=== PATIENT | male | born 1955 | race Caucasian/White ===

== ENCOUNTER → 2017-11-18 | Outpatient (CLI) | payer OTHER ==
[~2017-11-18] MED LIST: ALL300 PO; ASPI-435 PO; ATOR-22 PO; CHOL1TAB42 PO; CITA20TA9 PO; LORA-741 PO; MULT-506 PO; POTA10CA28 PO
[2017-11-21 13:53] LABS: FECAL OCCULT BLOOD #1 NEGATIVE (NEGATIVE); FECAL OCCULT BLOOD #2 NEGATIVE (NEGATIVE); FECAL OCCULT BLOOD #3 NEGATIVE (NEGATIVE)
== END | disposition home or self-care (01) ==
LOC: C.LABSPEC 13:29
PROVIDERS: ATTEND Internal Medicine
DX: Z12.11 Encounter for screening for malignant neoplasm of colon (principal)

== ENCOUNTER 2022-03-13 07:10 | Inpatient (IN) ==
--- NOTE | 2022-03-13 09:15 | Procedure Note ---
Procedure Note Date of Service March 13, 2022 Note INDICATION: Recurrent right-sided pleural effusion PROCEDURE: Right thoracentesis DATE: 03/13/2022 TIME: 8:35 AM PROVIDER: Fernando Torres PA-C CONSENT: Was obtained prior to the procedure by Fernando Torres PA-C as directed by Dr. Plaza and placed on the chart PROCEDURE SUMMARY: Bedside ultra sound was performed to identify an appropriate puncture site. Images were saved to the [employer]it[employer] system. A time out was performed. The patient was prepped and draped in a sterile manner using chlorhexidine scrub after the appropriate level was confirmed by ultrasound. 1% lidocaine was used to numb the region. A finder needle was then used under negative pressure to locate fluid and instill lidocaine into the pleural space. A small incision was made with a #10 scalpel. A needle with overlying catheter was advanced using negative pressure on the syringe until a pleural flash was obtained. The thoracentesis catheter was then threaded without difficulty and without any bleeding. The patient had 50mL of serosanguineous fluid removed. The incision site was then covered with two Band- Aids with no evidence of bleeding. Samples were sent for cell count and differential, pH, cytology. No immediate complications were noted during the procedure. Dr. Plaza was contacted after the procedure with results. A post-procedure chest x-ray was completed and reviewed at bedside by this provider and no pneumothorax was identified. The patient tolerated the procedure well with no shortness of breath, no hypotension, no increase in heart rate, and no other acute symptoms. Coding
--- NOTE | 2022-03-13 09:34 | XRay Report ---
XR chest 1V portable CLINICAL HISTORY: post thoracentesis. Evaluate for pneumothorax. COMPARISON STUDY: 03/11/2023 TECHNIQUE: 1 view of the chest FINDINGS: Single frontal view of the chest demonstrates the heart to again be enlarged. The patient is status p ost interval right thoracentesis with decrease right pleural effusion present. However, there is sign ificant pleural effusion remaining present. There is no evidence for pneumothorax. Right basilar atel ectasis is again seen. There is no evidence for left pleural effusion. No confluent alveolar opacities are identified. There is no evidence for vascular congestion. There is no acute osseous pathology. IMPRESSION: 1. Interval right thoracentesis with no evidence for pneumothorax. 2. There is still right pleural effusion and right lower lobe atelectasis/collapse present. ACT 112: Negative or not required by law. Electronically signed by: Sourav Fuentes M.D. 03/13/2022 9:33 AM
[2022-03-13] MEDS ORDERED: OPTIRAY 320 125ml IV ONE (10:01)
--- NOTE | 2022-03-13 10:30 | CT Scan Report ---
CT angio chest wo/w con HISTORY: Hypoxia, loculated pleural effusion TECHNIQUE: Multiaxial CT images of the chest were performed both before and after the intravenous adm inistration of 120 cc of Optiray 320. Maximum intensity projection images were also obtained. COMPARISON STUDY: Chest CT 02/27/2022. PET CT 03/06/2022. FINDINGS: No evidence for an intramural hematoma within the thoracic aorta. There is mild calcified p laque within the thoracic aorta. The thoracic inlet is normal in course and caliber with no evidence for dissection. The main and lobar pulmonary arteries appear patent. The majority of the segmental/freeman bsegmental pulmonary arteries are suboptimally assessed due to the motion artifact and timing of cont rast but are also likely patent. The heart is normal in size. Increase in size in a 5.4 cm heterogene ous enhancing mass within the right hepatic lobe. Increase in size in a 5.1 cm left adrenal gland met astasis. Right hilar and subcarinal lymphadenopathy is again noted consistent with metastatic disease . A moderate partially loculated right pleural effusion is similar to the prior PET/CT. Multifocal ri ght-sided pleural metastatic disease is also similar to the prior PET/CT. Dominant pleural metastatic focus within the right lung base on image 278 measures 5 cm. The necrotic mass within the base of th e right lower lobe measures approximately 5.6 cm. Partial atelectasis seen within the right lower lob e due to the mass effect from the adjacent pleural effusion. Emphysema. No pneumothorax. Old, healed right posterior rib fractures. Left-sided nephrolithiasis again noted. Osseous metastatic foci are be tter appreciated on the prior PET/CT. IMPRESSION: 1. Interval increase in size within the right hepatic lobe and left adrenal gland metastases. 2. Loculated moderate malignant right pleural effusion and right pleural metastatic disease are not s ignificantly changed. 3. No significant change in the 5.6 cm necrotic mass within the right lower lobe. 4. Right hilar and subcarinal metastatic lymphadenopathy persists. 4. Emphysema. 5. No evidence for an aortic dissection or central pulmonary embolus. 6. Additional findings as described above. ACT 112: Negative or not required by law. Electronically signed by: Tyrone Keita M.D. 03/13/2022 10:28 AM
[2022-03-13 11:02] LABS: Appearance Pleural Fluid BLOODY; Basophils, Fluid 0 %; Color Pleural Fluid RED; Eosinophils, Fluid 10 %; Lymphocytes, Fluid 62 %; Mono,Macrophage,Mesothelial 8 %; Neutrophils, Fluid 20 %; RBC Pleural Fluid (A) 33000 /uL; Source Pleural Fluid RIGHT LUNG; WBC Pleural Fluid (A) 963 /uL
[2022-03-13 11:35] LABS: Basophils # (auto) 0.03 K/uL (0-0.2); Basophils % (auto) 0.2 %; Eosinophils # (auto) 2.71 K/uL (0-0.5); Eosinophils % (auto) 15.3 %; Hematocrit (blood only) 41.8 % (42-52); Hemoglobin 14.3 g/dL (14.0-18.0); Immature Granulocytes # (auto) 0.13 K/uL (0.00-0.02); Immature Granulocytes % (auto) 0.7 %; Lymphocytes # (auto) 2.03 K/uL (1.2-3.4); Lymphocytes % (auto) 11.5 %; Mean Corpuscular Hemoglobin 30.2 pg (25-34); Mean Corpuscular Volume 88.2 fL (80-100); Mean Platelet Volume 8.8 fL (7.4-10.4); Monocytes # (auto) 1.44 K/uL (0.11-0.59); Monocytes % (auto) 8.1 %; Neutrophils # (auto) 11.38 K/uL (1.4-6.5); Neutrophils % (auto) 64.2 %; Platelet Count 261 K/uL (130-400); RDW Coefficient of Variation 13.9 % (11.5-14.5); RDW Standard Deviation 45.2 fL (36.4-46.3); Red Blood Count 4.74 M/uL (4.7-6.1); White Blood Count 17.72 K/uL (4.8-10.8)
--- NOTE | 2022-03-13 11:36 | Pulmonary Consultation ---
Date of Consultation March 13, 2022 Assessment & Plan (1) Pulmonary mass: (2) Pleural effusion: (3) COPD with emphysema: Attending: Dr. Kong Is a 67-year-old male with a history of hyperlipidemia, gout, tobacco abuse history, metastatic lung cancer to the liver. He presented for outpatient thoracentesis. A thoracentesis was performed and found to have multiple loculations. Only 50 cc of serosanguineous fluid was able to be removed. Patient was sent for CTA which ruled out pulmonary embolus but did show complicated loculated pleural effusion on the right. Patient is being admitted for placement of 14 [place] pigtail catheter and initiation of MIST II protocol with tPA and dornase. Recommendations: 1. Loculated right-sided pleural effusion: * Patient will be admitted for full admission for placement of pigtail catheter and institution of tPA and dornase. * Previous thoracentesis performed 02/28/2022 revealed normal pH and no evidence of infection. Pleural fluid evacuated today shows a pH of 7.09. This may be a forming empyema versus low pH due to complicated loculation * Will check a procalcitonin and a CBC before initiating IV antibiotics * Admit to medical surgical floor for management 2. Adenocarcinoma of lung: * Patient currently does not have tissue biopsy of the lung but does have biopsy of the liver which showed metastatic lung cancer * Patient is scheduled to see radiation oncology this week. They will be consulted * Will also consult oncology as patient has not been seen by oncology for newly diagnosed cancer 3. COPD/emphysema: * [id number] smoking history. Patient quit at age 53 * Continue with Stiolto Respimat or equivalent * Maintain oxygen saturation between 88 and 92% * Will follow with [facility] pulmonary group pulmonology on discharge 4. Tobacco abuse history: * [id number] history. Patient quit smoking at age 53 * Continue to encourage complete abstention from tobacco products Thank you very much for including us in the care of this patient. We will continue to follow along with you during this hospital stay. Please refer to Dr. Kong's addendum for further recommendations. History of Present Illness Reason for Consultation: Complicated loculated pleural effusion Requesting Physician: Dr. Nava Attending Physician: Fernando Torres PA-C History of Present Illness Attending: Dr. Kong This is a 67-year-old male that has a diagnosis of metastatic lung cancer to the liver. He had a thoracentesis performed by Dr. Garrett and 970 cc of bloody fluid was evacuated. Over the last 2 weeks, patient has had increased shortness of breath. He presented to his primary care physician yesterday and was found to be profoundly hypoxic with an SaO2 into the 70s. Home oxygen was arranged and patient was placed on 3 to 4 L of supplemental oxygen via nasal cannula. The patient was then set up to come into the outpatient setting today for evaluation for thoracentesis. Patient was was seen in the procedure room the cardiac Optometric Assistant. An ultrasound was completed and showed loculated effusion on the right. A pocket was identified and a thoracentesis was successfully completed but only 50 cc of serosanguineous fluid was able to be evacuated. Due to the profound shortness of breath and hypoxia as well as a loculated effusion identified on ultrasound, patient was sent for CTA chest to rule out pulmonary emboli and evaluate the lung parenchyma and the effusions. CT scan was reviewed and shows multiple loculations that are complicated. Hounsfield units do not necessarily suggest a hemothorax. Options were discussed with the patient regarding a repeat thoracentesis to try to get fluid from another pocket to provide relief or placement of a chest tube to instill tPA and dornase (Pulmozyme) to try and break up the effusion and evacuated. At this time, patient elects to be admitted under the hospitalist service with pulmonary consult to have pigtail catheter placed and mist 2 protocol instituted. The patient has past medical history including gout, hyperlipidemia, depression, COPD, emphysema, tobacco abuse history (42-[id number] history, quit 14 years ago) He has new onset cancer with metastatic adenocarcinoma from the lung found in the liver. Pleural fluid from 02/28/2022 did not show any malignant cells. Liver biopsy from 03/04/2022 did show malignant cells consistent with metastatic lung cancer. Patient has not seen an oncologist today. He is scheduled to see Dr. Jose Aguayo this week. Patient has no shortness of breath with oxygen. However he does desaturate easily with ambulation and experiences shortness of breath with exertion. CTA of the chest did not reveal any pulmonary emboli. He has no hemoptysis. He has no pleuritic pain. He denies any fever, chills, sweats, rigors. He has no nausea or vomiting. He has no headache. He has no other acute complaints. Patient is vaccinated for COVID x2 with Pfizer Patient continues to work. 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 Patient desires to be a full code with full cardiopulmonary resuscitation. Allergies Allergy/AdvReac Type Severity Reaction Status Date / Time No Known Allergies Allergy Unknown ` Verified 03/13/22 07:37 Home Medications Medication Instructions Recorded Confirmed Type allopurinol 300 mg tablet 300 mg PO HS 01/04/19 03/13/22 History aspirin 81 mg tablet,delayed 81 mg PO HS 01/04/19 03/13/22 History release atorvastatin 20 mg tablet 20 mg PO HS 01/04/19 03/13/22 History citalopram 20 mg tablet 20 mg PO HS 01/04/19 03/13/22 History multivitamin 1 tab PO QAM 01/04/19 03/13/22 History potassium 99 mg tablet 99 mg PO QA 01/04/19 03/13/22 History tiotropium 2.5 mcg-olodaterol 2.5 2 inh INHALATION DAILY #4 g 02/28/22 03/13/22 Rx mcg/actuation mist for inhalation (Stiolto Respimat) Patient History Medical History (Updated 03/13/22 @ 11:22 by Fernando Torres PA-C) Cervical strain Concussion Gout High cholesterol History of tobacco abuse [id number] smoking history. Quit at age 53 Hyperlipidemia Pleural effusion Thoracentesis 02/28/2022. Repeat thoracentesis 03/13/2022 with loculation requiring admission for mist 2 protocol. Pulmonary mass Surgical History (Updated 03/13/22 @ 11:30 by Fernando Torres PA-C) History of thoracentesis Thoracentesis performed by Dr. Garrett at [facility] 02/28/2022 Repeat thoracentesis completed by Fernando Torres PA-C [facility] 03/13/2022 No significant past surgical history Previous back surgery Social History (Updated 03/13/22 @ 11:22 by Fernando Torres PA-C) Smoking Status: Former smoker Age Quit Using Tobacco: 53; Second Hand Exposure: No; Do You Dip or Chew Tobacco: No; Tobacco Cessation Education Requested by Patient: No Hx Alcohol Use: No Hx Substance Use: No Preferred Language: German Post Anesthesia Room Nurse Required: No Beliefs That Will Affect Care: None marital status: Current Living Situation: Spouse current occupational status: employed Feels Safe at Home: Yes Safety Concerns: Feels Safe At This Time Assistive Devices: None and Oxygen - Continuous Review of Systems Review of Systems: A total of 10 systems was reviewed and is negative other than as listed in the HPI Physical Exam Physical Exam: GENERAL : No acute distress EYES: No icterus, gaze conjugate NOSE: No evidence of epistaxis MOUTH: No lesions or candidiasis NECK: Supple LUNGS: Posterior wheezes in the bilateral mid lung burger. These clear with forceful cough. No rales or rhonchi. Decreased breath sounds on the right side. Diaphragmatic excursion of approximately 20 cm HEART: Regular, rate controlled ABDOMEN: Soft, NT, ND, BS Present EXTREMITIES: No LE edema, pedal pulses intact NEURO: A&OX3 Results & Data Results & Data ([facility]) Vital Signs (Past 12 Hours) Vital Signs Temp Pulse Resp BP Pulse Ox 03/13/22 10:38 36.6 C 81 18 147/75 H 95 03/13/22 10:08 36.5 C 80 16 146/76 H 97 03/13/22 09:43 36.5 C 80 16 144/78 H 93 03/13/22 09:28 36.5 C 81 16 145/86 H 93 03/13/22 09:13 36.5 C 81 16 139/85 93 03/13/22 08:58 36.4 C L 85 16 151/75 H 94 03/13/22 07:21 36.5 C 86 22 133/81 92 Critical Care Results & Data Vital Signs (Past 12 Hours) Vital Signs Temp Pulse Resp BP Pulse Ox 03/13/22 11:08 36.6 C 81 18 148/80 H 93 03/13/22 10:38 36.6 C 81 18 147/75 H 95 03/13/22 10:08 36.5 C 80 16 146/76 H 97 03/13/22 09:43 36.5 C 80 16 144/78 H 93 03/13/22 09:28 36.5 C 81 16 145/86 H 93 03/13/22 09:13 36.5 C 81 16 139/85 93 03/13/22 08:58 36.4 C L 85 16 151/75 H 94 03/13/22 07:21 36.5 C 86 22 133/81 92 Lab & Micro Results (Past 24 Hours) RBC Pending 03/13/22 WBC Pending 03/13/22 Hgb Pending 03/13/22 Hct Pending 03/13/22 MCV Pending 03/13/22 MCH Pending 03/13/22 MCHC Pending 03/13/22 Plt Count Pending 03/13/22 Na Pending 03/13/22 K Pending 03/13/22 Cl Pending 03/13/22 CO2 Pending 03/13/22 Anion Gap Pending 03/13/22 BUN Pending 03/13/22 Creatinine Pending 03/13/22 Estimated GFR ( Amer) Pending 03/13/22 Estimated GFR (Non-Af Amer) Pending 03/13/22 BUN/Creatinine Ratio Pending 03/13/22 Glu Pending 03/13/22 Ca Pending 03/13/22 Total Bilirubin Pending 03/13/22 AST Pending 03/13/22 ALT Pending 03/13/22 Alkaline Phosphatase Pending 03/13/22 TP Pending 03/13/22 Albumin Pending 03/13/22 Globulin Pending 03/13/22 Albumin/Globulin Ratio Pending 03/13/22 Mg Pending 03/13/22 11:00 03/13/22 Calcium Level Pending 03/13/22 11:00 03/13/22 Prothromb Time International Ratio Pending 03/13/22 11:00 03/13/22 Diagnostic Findings (Past 24 Hours) Chest X-Ray 03/13/22 08:59 XR chest 1V portable CLINICAL HISTORY: post thoracentesis. Evaluate for pneumothorax. COMPARISON STUDY: 03/11/2023 TECHNIQUE: 1 view of the chest FINDINGS: Single frontal view of the chest demonstrates the heart to again be enlarged. The patient is status post interval right thoracentesis with decrease right pleural effusion present. However, there is significant pleural effusion remaini ng present. There is no evidence for pneumothorax. Right basilar atelectasis is again seen. There is no evidence for left pleural effusion. No confluent alveolar opacities are identified. There is no evidence for vascular congestion. There is no acute osseous pathology. IMPRESSION: 1. Interval right thoracentesis with no evidence for pneumothorax. 2. There is still right pleural effusion and right lower lobe atelectasis/collapse present. ACT 112: Negative or not required by law. Electronically signed by: Sourav Fuentes M.D. 03/13/2022 9:33 AM Chest CTA 03/13/22 09:38 CT angio chest wo/w con HISTORY: Hypoxia, loculated pleural effusion TECHNIQUE: Multiaxial CT images of the chest were performed both before and after the intravenous administration of 120 cc of Optiray 320. Maximum intensity projection images were also obtained. COMPARISON STUDY: Chest CT 02/27/2022. PET CT 03/06/2022. FINDINGS: No evidence for an intramural hematoma within the thoracic aorta. There is mild calcified plaque within the thoracic aorta. The thoracic inlet is normal in course and caliber with no evidence for dissection. The main and lobar pulmonary arteries appear patent. The majority of the segmental/subsegmental pulmonary arteries are suboptimally assessed due to the motion artifact and timing of contrast but are also likely patent. The heart is normal in size. Increase in size in a 5.4 cm heterogeneous enhancing mass within the right hepatic lobe. Increase in size in a 5.1 cm left adrenal gland metastasis. Right hilar and subcarinal lymphadenopathy is again noted consistent with metastatic disease. A moderate partially loculated right pleural effusion is similar to the prior PET/CT. Multifocal right-sided pleural metastatic disease is also similar to the prior PET/CT. Dominant pleural metastatic focus within the right lung base on image 278 measures 5 cm. The necrotic mass within the base of the right lower lobe measures approximately 5.6 cm. Partial atelectasis seen within the right lower lobe due to the mass effect from the adjacent pleural effusion. Emphysema. No pneumothorax. Old, healed right posterior rib fractures. Left- sided nephrolithiasis again noted. Osseous metastatic foci are better appreciated on the prior PET/CT. IMPRESSION: 1. Interval increase in size within the right hepatic lobe and left adrenal gland metastases. 2. Loculated moderate malignant right pleural effusion and right pleural metastatic disease are not significantly changed. 3. No significant change in the 5.6 cm necrotic mass within the right lower lobe. 4. Right hilar and subcarinal metastatic lymphadenopathy persists. 4. Emphysema. 5. No evidence for an aortic dissection or central pulmonary embolus. 6. Additional findings as described above. ACT 112: Negative or not required by law. Electronically signed by: Tyrone Keita M.D. 03/13/2022 10:28 AM I & O Totals 24 Hours 03/12/22 03/13/22 03/14/22 06:59 06:59 06:59 Output Total 50 / 50 Balance -50 / -50 Cumulative 03/12/22 12:09 thru 03/13/22 10:01 Output Total 50 Balance -50 RT Ventilator Mngmt (Last Documented) Ventilator Ordered Settings Respiratory Rate 18 03/13/22 11:08 Ventilator - PT Measurements Respiratory Rate 18 PG Care Time/CCT Total # of Minutes Spent Total Time Spent with Patient: Total time spent is greater than 50% in coordination of care (as documented) at patient's floor/unit and/or counseling patient: 60 minutes independent of procedures Coding Level of Care Code 66254 Inpt Consult Level 5 Diagnoses Pulmonary mass R91.8 Pleural effusion J90 COPD with emphysema J43.9 Time Spent (min) 60
[2022-03-13 11:39] LABS: Mean Corpuscular Hgb Conc 34.2 g/dL (32-36)
[2022-03-13 11:50] LABS: INR 1.1 (0.9-1.1); Partial Thromboplastin Time 27.9 Seconds (21.0-31.0); Prothrombin Time 11.9 Seconds (9.0-12.0)
[2022-03-13 11:52] LABS: Albumin Level 3.3 gm/dl (3.4-5.0); BUN Creatinine Ratio 22.2 (10-20); Bilirubin,Total 0.6 mg/dl (0.2-1.0); Creatinine Clr Calc Pharmacy 116.6 ml/min; Est GFR (African American) 111.1 ml/min; Est GFR (Non-African American) 95.9 ml/min; Globulin 3.3 gm/dl (2.5-4.0); Magnesium 2.1 mg/dl (1.7-2.4); Potassium 4.4 mmol/L (3.5-5.1); Total Protein 6.6 gm/dl (6.0-8.3)
[2022-03-13 12:12] LABS: Influenza A virus by PCR Negative (Neg); Influenza B virus by PCR Negative (Neg); RSV by PCR Negative (Neg); SARS CoV2 RNA(COVID-19) InHosp NEGATIVE (Negative)
--- NOTE | 2022-03-13 13:16 | History & Physical Report ---
Date of Service March 13, 2022 Assessment & Plan (1) Pleural effusion: Plan: Right-sided, presumed malignant, already reaccumulating within 2 weeks of previous thoracentesis. With recent fevers need to exclude developing empyema. Underwent repeat thoracentesis today with only 50cc of bloody fluid obtained. Lack of yield likley due to numerous loculations. Appreciate pulmonary consultation & assistance. Plan is for pigtail catheter placement followed by MIST-2 protocol to help break up loculations, etc. Await gram/stain culture; low threshold to start IV antibiotic therapy. (2) Adenocarcinoma of right lung, stage 4: Plan: Recent diagnosis via liver biopsy performed at [facility]. Has yet to establish care with [facility] to initiate a treatment plan but again the diagnosis was just made in the last few days. While working on #1 strongly consider formal oncology consultation while here. Patient with c/o b/l calf "tiredness" / discomfort. Obtain b/l LE dopplers - r/o DVT. (3) COPD with emphysema: Plan: Now with NC O2 requirement likely due to #1. Bronchodilators prn. Cont NC O2. Cont usual home inhalers. (4) Gout: Plan: No flare at this time. Cont allopurinol for gout prophylaxis. (5) Hyponatremia: Plan: SIADH? Patient appears euvolemic on examination. Check serum osm, urine osm, urine Na. If SIADH is present then salt tab supplementation, fluid restriction, and/or lasix low-dose. BMP am. (6) Hyperlipidemia: Plan: LFTs are wnl. Cont lipitor daily. Hold aspirin due to bloody pleural fluid & need for additional intervention. (7) DVT prophylaxis: Plan: Hold on chemical means for now given #1 and need for repeat procedures. History of Present Illness Chief Complaint: worsening dyspnea, pleuritic chest pain Primary Care Provider: Aguilar Helton MD Pleasant 67yo male with recent diagnosis of stage 4 adenocarcinoma of the right lung with mets to the liver, bone, and left adrenal gland presented this am to [facility] for a scheduled right-sided thoracentesis. The patient had had a right-sided thoracentesis on 02/28/[address] Yaw Garrett of [facility]. The procedure note indicates he had 950cc of blood fluid obtained at that time but the cytologies were negative. A subsequent liver biopsy was performed on 03/04/22 as an outpatient which confi rmed a diagnosis of lung adenocarcinoma. He then had a PET/CT on 03/06/22 demonstrating a large RLL necrotic mass with evidence of metastatic disease. Following his 02/28 thoracentesis his dyspnea on exertion had improved but since that time the dyspnea has progressively gotten worse. This has been associated with pleuritic chest pain over the parasternal border on right. He states he can only walk a few feet before the shortness of breath sets in. In fact yesterday he was placed on supplemental NC O2 by his PCP for O2 sats in the 70s by report. Patient reports that he has "simply not felt well" for 2-3 weeks. During this time period he has had fevers to 102 degrees, anorexia, fatigue, and dyspnea. Preparations were being made for him to start outpatient chemotherapy under the direction of Dr Kris Aguayo, [facility]/onc. During today's thoracentesis by Fernando OLIVO about 50cc of bloody fluid was obtained. Additional fluid was unable to be obtained, however. CTA chest immediately following the procedure showed that the right-sided effusion is now in loculations. No PE was seen. During my assessment the patient was resting comfortably and waiting for his bed on the med/surg unit. Allergies Allergy/AdvReac Type Severity Reaction Status Date / Time No Known Allergies Allergy Unknown ` Verified 03/13/22 07:37 Home Medications Medication Instructions Recorded Confirmed Type allopurinol 300 mg tablet 300 mg PO HS 01/04/19 03/13/22 History aspirin 81 mg tablet,delayed 81 mg PO HS 01/04/19 03/13/22 History release atorvastatin 20 mg tablet 20 mg PO HS 01/04/19 03/13/22 History citalopram 20 mg tablet 20 mg PO HS 01/04/19 03/13/22 History multivitamin 1 tab PO QAM 01/04/19 03/13/22 History potassium 99 mg tablet 99 mg PO QAM 01/04/19 03/13/22 History tiotropium 2.5 mcg-olodaterol 2.5 2 inh INHALATION DAILY #4 g 02/28/22 03/13/22 Rx mcg/actuation mist for inhalation (Stiolto Respimat) Past Med/Surg History Medical History (Updated 03/15/22 @ 06:07 by Liborio Nava) Adenocarcinoma of right lung, stage 4 dx 02/2022; mets to liver, bone, adrenal gland Cervical strain Concussion Gout High cholesterol History of tobacco abuse [id number] smoking history. Quit at age 53 Hyperlipidemia Pleural effusion Thoracentesis 02/28/2022. Repeat thoracentesis 03/13/2022 with loculation requiring admission for mist 2 protocol. Surgical History (Updated 03/13/22 @ 13:07 by Liborio Nava) H/O cataract extraction bilateral History of thoracentesis Thoracentesis performed by Dr. Garrett at [facility] 02/28/2022 Repeat thoracentesis completed by Fernando Torres PA-C [facility] 03/13/2022 Previous back surgery Family History (Updated 03/13/22 @ 13:09 by Liborio Nava) Father , in his 70s Parkinson's disease Coronary heart disease Hx of CABG Mother , in her 70s Myocardial infarction Cerebral aneurysm Denies family history of Lung cancer Social History (Updated 03/13/22 @ 13:10 by Liborio Nava) Smoking Status: Former smoker Age Quit Using Tobacco: 53; packs per day: 2; Second Hand Exposure: No; Do You Dip or Chew Tobacco: No; Tobacco Cessation Education Requested by Patient: No Hx Alcohol Use: No Hx Substance Use: No Preferred Language: [place] Communication Ability: Effective 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 Beliefs That Will Affect Care: None marital status: Current Living Situation: Spouse Current Living Situation Comment: Rosario current occupational status: employed current occupation: [employer] How many Children do You have: 3 Feels Safe at Home: Yes Safety Concerns: Feels Safe At This Time Assistive Devices: Oxygen - Continuous Review of Systems Review of Systems: gen - recent fevers (highest 102), anorexia, fatigue; no weight loss eyes - no visual changes HENT - denies hearing changes, denies dysphagia or sore throat/congestion CV - pleuritic chest pain, mainly right chest; no edema pulm - cough, shortness of breath, TREVINO; no hemoptysis GI - no abd pain, nausea, emesis, diarrhea - no voiding issues endo - no diabetes psych - no depression/anxiety skin - no rash neuro - mild headaches of late musculo - mild "tired" feeling of both calves for 1-2 weeks; no back pain Physical Exam Physical Exam: gen - pleasant, comfortable, sitting in chair, NAD eyes - lens implants b/l; PERRL HENT - mouth with MMM, no lesions neck - no JVD, no mass, no thyroid nodules heart - RRR, s1 s2, no murmur lungs - decreased BS right base, otherwise CTA b/l, no rales or wheeze or increased work of breathing abd - soft NT ND BS+; no HSM ext - no edema, pulses 2+ b/l skin - no rash neuro - strength 5/5 x 4 exts; DTRs 2+ b/l psych - a/o x 3 lymph - no cervical lymph nodes b/l Results & Data Results & Data ([facility]) Vital Signs (Past 12 Hours) Vital Signs Temp Pulse Resp BP Pulse Ox 03/13/22 12:08 36.5 C 84 20 141/79 H 92 03/13/22 11:08 36.6 C 81 18 148/80 H 93 03/13/22 10:38 36.6 C 81 18 147/75 H 95 03/13/22 10:08 36.5 C 80 16 146/76 H 97 03/13/22 09:43 36.5 C 80 16 144/78 H 93 03/13/22 09:28 36.5 C 81 16 145/86 H 93 03/13/22 09:13 36.5 C 81 16 139/85 93 03/13/22 08:58 36.4 C L 85 16 151/75 H 94 03/13/22 07:21 36.5 C 86 22 133/81 92 Laboratory Results Laboratory Results - last 24 hr 03/13/22 03/13/22 03/13/22 11:00 11:00 11:00 WBC 17.72 H RBC 4.74 Hgb 14.3 Hct 41.8 L MCV 88.2 MCH 30.2 MCHC 34.2 RDW Std Deviation 45.2 RDW Coeff of Reece 13.9 Plt Count 261 MPV 8.8 Immature Gran % (Auto) 0.7 Neut % (Auto) 64.2 Lymph % (Auto) 11.5 Emmet % (Auto) 8.1 Eos % (Auto) 15.3 Baso % (Auto) 0.2 Neut # (Auto) 11.38 H Lymph # (Auto) 2.03 Emmet # (Auto) 1.44 H Eos # (Auto) 2.71 H Baso # (Auto) 0.03 Immature Gran # (Auto) 0.13 H PT 11.9 INR 1.1 APTT 27.9 PTT Ratio 1.0 Sodium 132 L Potassium 4.4 Chloride 100 Carbon Dioxide 25 Anion Gap 7 BUN 16 Creatinine 0.72 Est Cr Clr Drug Dosing 116.6 Est GFR ( Amer) 111.1 Est GFR (Non-Af Amer) 95.9 BUN/Creatinine Ratio 22.2 H Glucose 92 Calcium 9.0 Magnesium 2.1 Total Bilirubin 0.6 AST 23 ALT 52 Alkaline Phosphatase 85 Total Protein 6.6 Albumin 3.3 L Globulin 3.3 Albumin/Globulin Ratio 1.0 Fluid Neutrophils % Fluid Lymphocytes % Fluid Eosinophils % Fluid Basophils % Fluid Meso/Macro/Emmet % Fluid Comment Pleural Fluid Source Pleural Color Pleural Appearance Pleural pH Pleural WBC Pleural RBC SARS-CoV-2 (PCR) Influenza Type A (PCR) Influenza Type B (PCR) RSV (RT-PCR) 03/13/22 03/13/22 03/13/22 11:09 Unknown Unknown WBC RBC Hgb Hct MCV MCH MCHC RDW Std Deviation RDW Coeff of Reece Plt Count MPV Immature Gran % (Auto) Neut % (Auto) Lymph % (Auto) Emmet % (Auto) Eos % (Auto) Baso % (Auto) Neut # (Auto) Lymph # (Auto) Emmet # (Auto) Eos # (Auto) Baso # (Auto) Immature Gran # (Auto) PT INR APTT PTT Ratio Sodium Potassium Chloride Carbon Dioxide Anion Gap BUN Creatinine Est Cr Clr Drug Dosing Est GFR ( Amer) Est GFR (Non-Af Amer) BUN/Creatinine Ratio Glucose Calcium Magnesium Total Bilirubin AST ALT Alkaline Phosphatase Total Protein Albumin Globulin Albumin/Globulin Ratio Fluid Neutrophils % 20 Fluid Lymphocytes % 62 Fluid Eosinophils % 10 Fluid Basophils % 0 Fluid Meso/Macro/Emmet % 8 Fluid Comment Pleural Fluid Source RIGHT LUNG Pleural Color RED Pleural Appearance BLOODY Pleural pH 7.09 L Pleural WBC 963 Pleural RBC [address] SARS-CoV-2 (PCR) NEGATIVE Influenza Type A (PCR) Negative Influenza Type B (PCR) Negative RSV (RT-PCR) Negative Diagnostic Findings Chest X-Ray 03/13/22 08:59 XR chest 1V portable CLINICAL HISTORY: post thoracentesis. Evaluate for pneumothorax. COMPARISON STUDY: 03/11/2023 TECHNIQUE: 1 view of the chest FINDINGS: Single frontal view of the chest demonstrates the heart to again be enlarged. The patient is status post interval right thoracentesis with decrease right pleural effusion present. However, there is significant pleural effusion remaining present. There is no evidence for pneumothorax. Right basilar atelectasis is again seen. There is no evidence for left pleural effusion. No confluent alveolar opacities are identified. There is no evidence for vascular congestion. There is no acute osseous pathology. IMPRESSION: 1. Interval right thoracentesis with no evidence for pneumothorax. 2. There is still right pleural effusion and right lower lobe atelectasis/collapse present. ACT 112: Negative or not required by law. Electronically signed by: Sourav Fuentes M.D. 03/13/2022 9:33 AM Chest CTA 03/13/22 09:38 CT angio chest wo/w con HISTORY: Hypoxia, loculated pleural effusion TECHNIQUE: Multiaxial CT images of the chest were performed both before and after the intravenous administration of 120 cc of Optiray 320. Maximum intensity projection images were also obtained. COMPARISON STUDY: Chest CT 02/27/2022. PET CT 03/06/2022. FINDINGS: No evidence for an intramural hematoma within the thoracic aorta. There is mild calcified plaque within the thoracic aorta. The thoracic inlet is normal in course and caliber with no evidence for dissection. The main and lobar pulmonary arteries appear patent. The majority of the segmental/subsegmental pulmonary arteries are suboptimally assessed due to the motion artifact and timing of contrast but are also likely patent. The heart is normal in size. Increase in size in a 5.4 cm heterogeneous enhancing mass within the right hepatic lobe. Increase in size in a 5.1 cm left adrenal gland metastasis. Right hilar and subcarinal lymphadenopathy is again noted consistent with metastatic disease. A moderate partially loculated right pleural effusion is similar to the prior PET/CT. Multifocal right-sided pleural metastatic disease is also similar to the prior PET/CT. Dominant pleural metastatic focus within the right lung base on image 278 measures 5 cm. The necrotic mass within the base of the right lower lobe measures approximately 5.6 cm. Partial atelectasis seen within the right lower lobe due to the mass effect from the adjacent pleural effusion. Emphysema. No pneumothorax. Old, healed right posterior rib fractures. Left- sided nephrolithiasis again noted. Osseous metastatic foci are better appreciated on the prior PET/CT. IMPRESSION: 1. Interval increase in size within the right hepatic lobe and left adrenal gland metastases. 2. Loculated moderate malignant right pleural effusion and right pleural metastatic disease are not significantly changed. 3. No significant change in the 5.6 cm necrotic mass within the right lower lobe. 4. Right hilar and subcarinal metastatic lymphadenopathy persists. 4. Emphysema. 5. No evidence for an aortic dissection or central pulmonary embolus. 6. Additional findings as described above. ACT 112: Negative or not required by law. Electronically signed by: Tyrone Keita M.D. 03/13/2022 10:28 AM Code Status & VTE Plan Code Status full code - but would not want prolonged intubation/mech ventilation VTE Prophylaxis Plan VTE Prophylaxis will be ordered: Yes PG Care Time/CCT Total # of Minutes Spent Total Time Spent with Patient: Total time spent is greater than 50% in coordination of care (as documented) at patient's floor/unit and/or counseling patient: Coding Level of Care Code 05791 Initial Inpt Care Lvl 3 Diagnoses Adenocarcinoma of right lung, stage 4 C34.91 Pleural effusion J90 COPD with emphysema J43.9 Gout M10.9 Hyponatremia E87.1 DVT prophylaxis Z29.9 Hyperlipidemia E78.5
--- NOTE | 2022-03-13 13:55 | Procedure Note ---
Procedure Note Date of Service March 13, 2022 Note PIGTAIL CATHETER PLACEMENT NOTE: Procedure: Pigtail Catheter Chest Tube Placement Indication: Loculated pleural effusion Anesthesia: 15 ml Lidocaine 1% Written consent was obtained and placed on the chart. Timeout was done prior to the procedure. Prior to procedure, chest x-ray films were reviewed by myself and demonstrated a large loculated left pleural effusion. A time-out was completed verifying correct patient, procedure, site, positioning, and implant(s) or special equipment if applicable. Utilizing bedside ultrasound, chest wall was evaluated for location for optimal chest tube placement. Location between the fifth and sixth ribs were marked on the skin using gentle pressure. The left sided chest wall was prepped with chlorhexidine and draped in the typical sterile fashion. 15 mL of 1% Lidocaine without epinephrine was used to anesthetize the skin down to the dorsal surface of the fifth rib. Serosanguineous fluid return confirmed entry into the pleural space. Lidocaine was injected into the pleural space for increased anesthetization. Introducer needle on syringe was inserted in perpendicular fashion taking care to ride just above the dorsal surface of the fifth rib. Entry into the pleural space was heralded by fluid return into the syringe while under gentle aspiration. Guide wire was advanced into the pleural space without resistance and the introducer needle was subsequently removed. Scalpel was used to make small incision of the superficial tissue, parallel to the direction of the rib anatomy. Dilator was advanced uneventfully over the guide wire into the pleural space. 14 Latvian Pigtail Catheter was inserted into the pleural space. Inner introducer and guide wire were removed. Drain was immediately connected to pre-prepared LISA pleur-evac system. Pigtail was sutured securely in place and sterile dressing was applied. Chest tube was placed to -20 cmH2O suction. Patient tolerated procedure well. Blood Loss: Minimal Complications: None Post procedure Chest X-ray was ordered and reviewed by myself which demonstrated adequate placement. Coding CPT Codes Pulmonary/Thoracic - Pulmonary and Thoracic: 00930 Tube thoracostomy ([id number]) Pulmonary/Thoracic - Pulmonary and Thoracic: 45278 US, Chest, real time with imaging documentation ([id number]) [facility] Procedure Codes (Charges) Pulmonary/Thoracic Procedure 1: Pulmonary and Thoracic: 45577 Tube thoracostomy Procedure 2: Pulmonary and Thoracic: 79462 US, Chest, real time with imaging documentation
--- NOTE | 2022-03-13 14:02 | XRay Report ---
XR chest 1V portable CLINICAL HISTORY: POST CHEST TUBE INSERTION. COMPARISON STUDY: 03/13/2022 and CTA chest from 03/13/2022 TECHNIQUE: 1 view of the chest FINDINGS: Single frontal view of the chest demonstrates the heart size to again be enlarged. Right-sided pigtai l catheter has been placed with no evidence for pneumothorax. There is interval decrease in right ple ural effusion. However, there is persistent right lower lobe atelectasis/collapse. There is no evidence for left pleural effusion. No confluent alveolar opacities are identified. There is no evidence for vascular congestion. There is no acute osseous pathology. IMPRESSION: 1. Status post placement of right lower lobe pigtail catheter with decreased right pleural effusion a nd no evidence for pneumothorax. 2. However, there is persistent right lower lobe atelectasis/collapse. There is reported to be a righ t lower lobe mass on the interval chest CT with history of metastatic disease. ACT 112: Negative or not required by law. Electronically signed by: Sourav Fuentes M.D. 03/13/2022 2:01 PM
[2022-03-13] MEDS ORDERED: ALUMINUM/MAGNESIUM SUSP 30 ML UDC PO PRN (14:18)
[2022-03-13] MEDS ORDERED: POLYETHYLENE (MIRALAX) 17 GM PACK PO PRN (14:18)
[2022-03-13] MEDS ORDERED: NON-FORMULARY MEDICATION (Potassium 99 mg Tablet) PO SCH (14:18)
[2022-03-13] MEDS ORDERED: MAGNESIUM HYDROXIDE SUSP 30 ML UDC PO PRN (14:18)
[2022-03-13] MEDS ORDERED: ONDANSETRON INJ 2 MG/ML 2 ML VIAL IV PRN (14:18)
[2022-03-13 15:39] LABS: Total Protein Pleural Fluid 4.1 gm/dl
[2022-03-13] MEDS ORDERED: PIPERACILL/TAZOBAC CONSULT ACTIVE PRN (15:45)
[2022-03-13] MEDS ORDERED: PIPERACILLIN/TAZOBACTAM 3.375 GM in DEXTROSE 5% 100 ML IV ONE (17:00)
[2022-03-13] MEDS: UMECLIDINIUM/VILANTEROL 62.5/25MCG 7 PUFFS/INHALER INH SCH (17:21)
[2022-03-13] MEDS: DORNASE ALFA 5 ML in SYRINGE 25 ML IPL SCH (17:55)
[2022-03-13] MEDS: ALTEPLASE, RECOMBINANT 10 MG in SYRINGE 50 ML IPL SCH (19:20)
[2022-03-13] MEDS: CITALOPRAM 20 MG TAB PO SCH (20:32)
[2022-03-13] MEDS: ATORVASTATIN 20 MG TAB PO SCH (20:32)
[2022-03-13] MEDS: allopurinoL 300 MG TAB PO SCH (20:32)
[2022-03-13] MEDS: PIPERACILLIN/TAZOBACTAM 3.375 GM in DEXTROSE 5% 100 ML IV SCH (20:34)
[2022-03-14] MEDS: ALTEPLASE, RECOMBINANT 10 MG in SYRINGE 50 ML IPL SCH ×2 (04:54→17:30)
[2022-03-14] MEDS: PIPERACILLIN/TAZOBACTAM 3.375 GM in DEXTROSE 5% 100 ML IV SCH ×3 (05:00→21:51)
[2022-03-14] MEDS: DORNASE ALFA 5 ML in SYRINGE 25 ML IPL SCH ×2 (06:03→18:37)
[2022-03-14 06:23] LABS: Hematocrit (blood only) 41.1 % (42-52); Mean Corpuscular Hemoglobin 29.6 pg (25-34); Mean Corpuscular Hgb Conc 34.1 g/dL (32-36); Mean Corpuscular Volume 86.9 fL (80-100); Mean Platelet Volume 8.5 fL (7.4-10.4); Platelet Count 244 K/uL (130-400); RDW Coefficient of Variation 14.1 % (11.5-14.5); RDW Standard Deviation 45.1 fL (36.4-46.3); Red Blood Count 4.73 M/uL (4.7-6.1); White Blood Count 17.21 K/uL (4.8-10.8)
[2022-03-14 06:39] LABS: BUN Creatinine Ratio 26.4 (10-20); Calcium 8.6 mg/dl (8.5-10.1); Creatinine Clr Calc Pharmacy 116.6 ml/min; Est GFR (African American) 111.1 ml/min; Est GFR (Non-African American) 95.9 ml/min; Potassium 4.1 mmol/L (3.5-5.1)
--- NOTE | 2022-03-14 07:07 | XRay Report ---
XR chest 1V portable at 10:33 PM CLINICAL HISTORY: follow up s/p thrombolytics via chest tube. COMPARISON STUDY: 03/13/2022 at 1:49 AM TECHNIQUE: 1 view of the chest FINDINGS: Single frontal view of the chest demonstrates the heart size to be within normal limits. Right infrah ilar mass is present. Right-sided pigtail catheter is again seen with almost complete resolution of r ight pleural effusion. The left hemithorax and right upper lobe are clear. There is no evidence for l eft pleural effusion. There is no evidence for vascular congestion. There is no acute osseous patholo gy. IMPRESSION: 1. Almost complete interval resolution of right pleural effusion. 2. Inferior right hilar mass is again seen. ACT 112: Negative or not required by law. Electronically signed by: Sourav Fuentes M.D. 03/14/2022 7:06 AM
--- NOTE | 2022-03-14 07:20 | Ultrasound Report ---
BILATERAL LOWER EXTREMITY VENOUS DOPPLER CLINICAL HISTORY: CALF DISCOMFORT COMPARISON STUDY: No previous studies for comparison. TECHNIQUE: Sonography of the deep venous system of the bilateral lower extremities was performed. Co mpression and augmentation were evaluated. FINDINGS: The bilateral common femoral, superficial femoral and popliteal veins were compressible. A ugmentation was normal. Flow was shown within the deep calf vessels. IMPRESSION: No evidence of deep venous thrombus within the bilateral lower extremities. ACT 112: Negative or not required by law. Electronically signed by: Jacinto Solares M.D. 03/14/2022 7:19 AM
--- NOTE | 2022-03-14 08:34 | XRay Report ---
XR chest 1V portable CLINICAL HISTORY: Follow-up pleural effusion and right lung mass. COMPARISON STUDY: No previous studies for comparison. TECHNIQUE: 1 view of the chest FINDINGS: Single frontal view of the chest demonstrates the heart size to be within normal limits. There is aga in right hilar mass present. Pigtail catheter is again seen in the right lung base with no evidence f or residual pleural effusion or right-sided pneumothorax. There has been interval development of mini mal left basilar atelectasis. There is no evidence for vascular congestion. There is no acute osseous pathology. IMPRESSION: 1. Right pigtail catheter is again seen with no evidence for recurrent pleural effusion or pneumothor ax. 2. Inferior right hilar mass is again seen. 3. Interval development of minimal atelectasis at the left lung base. ACT 112: Negative or not required by law. Electronically signed by: Sourav Fuentes M.D. 03/14/2022 8:33 AM
[2022-03-14] MEDS: UMECLIDINIUM/VILANTEROL 62.5/25MCG 7 PUFFS/INHALER INH SCH (09:07)
[2022-03-14] MEDS: MULTIVITAMIN TAB PO SCH (09:07)
--- NOTE | 2022-03-14 10:42 | Pulmonology Progress Note ---
Date of Service March 14, 2022 Assessment & Plan (1) Pleural effusion: (2) Pulmonary mass: (3) COPD with emphysema: Plan: Attending: Dr. Kong 67-year-old male with a history of hyperlipidemia, gout, tobacco abuse history, metastatic lung cancer to the liver. He presented for outpatient thoracentesis. A thoracentesis was performed and found to have multiple loculations. Only 50 cc of serosanguineous fluid was able to be removed. Patient was sent for CTA which ruled out pulmonary embolus but did show complicated loculated pleural effusion on the right. Patient is being admitted for placement of 14 Chinese pigtail catheter and initiation of MIST II protocol with tPA and dornase. Recommendations: Pleural effusion has greatly improved with the initiation of tPA/dornase installations. We will continue the MIST 2 protocol for total 3 days. Continue broad-spectrum antibiotics at this time. Pain control per primary team. Otherwise, continue with Anoro Ellipta for his history of COPD. He is to undergo the initiation of chemoimmunotherapy as an outpatient in [facility]. Thank you for allowing us to participate in the care of the patient. Please call with questions. Admission and Anticipated Discharge Date Admission Date: March 13, 2022 Subjective Patient subjectively feels much less short of breath. Cough is improved. No chest pain presently. Appetite good. Review of Systems Review of Systems: All systems reviewed & are unremarkable except as noted in HPI & below Physical Exam Physical Exam: gen - pleasant, comfortable, sitting in chair, NAD eyes - lens implants b/l; PERRL HENT - mouth with MMM, no lesions neck - no JVD, no mass, no thyroid nodules heart - RRR, s1 s2, no murmur lungs - decreased BS right base, otherwise CTA b/l, no rales or wheeze or increased work of breathing. Right pigtail catheter clean, dry and intact abd - soft NT ND BS+; no HSM ext - no edema, pulses 2+ b/l skin - no rash neuro - strength 5/5 x 4 exts; DTRs 2+ b/l psych - a/o x 3 lymph - no cervical lymph nodes b/l Results & Data Results & Data ([facility]) Vital Signs (Past 12 Hours) Vital Signs Temp Pulse Pulse Resp BP Pulse Ox 03/14/22 09:00 36.6 C 81 88 18 135/77 93 03/14/22 08:04 36.6 C 88 18 135/77 93 03/14/22 04:01 37.0 C 79 16 121/68 91 PG Care Time/CCT Total # of Minutes Spent Total Time Spent with Patient: Total time spent is greater than 50% in coordination of care (as documented) at patient's floor/unit and/or counseling patient: Coding Level of Care Code 44186 Subseq Hosp Care Lvl 2 Diagnoses Pulmonary mass R91.8 Pleural effusion J90 COPD with emphysema J43.9
[2022-03-14] MEDS: HEPARIN SOD 5,000 UNIT/0.5 ML VIAL SQ SCH ×2 (13:41→21:56)
[2022-03-14] MEDS: SODIUM CHLORIDE 1 GM TABLET PO SCH ×2 (13:41→20:45)
[2022-03-14] MEDS: allopurinoL 300 MG TAB PO SCH (20:41)
[2022-03-14] MEDS: ACETAMINOPHEN 325 MG TAB PO PRN (20:41)
[2022-03-14] MEDS: CITALOPRAM 20 MG TAB PO SCH (20:41)
[2022-03-14] MEDS: ATORVASTATIN 20 MG TAB PO SCH (20:42)
--- NOTE | 2022-03-14 21:59 | Hospitalist Progress Note ---
Date of Service March 14, 2022 Assessment & Plan (1) Malignant pleural effusion: Plan: Although cytologies are negative from the pleural fluid from earlier this month - as well as this admission - the reaccumulating fluid is highly suspicious for malignant pleural effusion given the large RLL lung mass. I appreciate the ongoing management efforts by pulmonary. CXR today looks markedly better s/p pigtail catheter placement on the right yesterday and initiation of MIST-2 protocol. Defer management to pulmonary. Patient remains on IV zosyn in the event there is an infectious component to this right-sided effusion. Thus far cultures are negative, however. (2) Pleural effusion: Plan: Right-sided, presumed malignant, already reaccumulating within 2 weeks of previous thoracentesis. see #1 above. (3) Adenocarcinoma of right lung, stage 4: Plan: Recent diagnosis via liver biopsy performed at [facility]. Patient to initiate chemotherapy under the care of Dr Kris Aguayo, [facility]. (4) COPD with emphysema: Plan: Now with NC O2 requirement likely due to #1. Bronchodilators prn. Cont NC O2. Cont usual home inhalers. (5) Gout: Plan: No flare at this time. Cont allopurinol for gout prophylaxis. (6) Hyponatremia: Plan: Urine osm VERY high, urine Na >100. Patient appears euvolemic on examination. 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 He is on SSRI therapy but the celexa is chronic for years; thus, likely not causing the SIADH. Cont NaCl 1gm BID, fluid restrict to 1500cc/day. Liberalize diet. BMP am. Try zofran before the salt tabs due to nausea. (7) Hyperlipidemia: Plan: LFTs are wnl. Cont lipitor daily. Hold aspirin due to bloody pleural fluid & need for additional intervention. (8) DVT prophylaxis: Plan: pulmonary ok with starting DVT proph start heparin 5000 TID Plan: updated pt's by phone this evening Admission and Anticipated Discharge Date Admission Date: March 13, 2022 Subjective patient overall feeling better - especially his breathing still with TREVINO but improved from prior since starting the NaCl tablet it causes immediate nausea and emesis last BM was recent but very small in size appetite poor-fair right-sided chest pain improved tolerating MIST-2 Protocol and copious bloody pleural fluid is being obtained no new complaints Review of Systems Review of Systems: gen - no fevers or chills cv - no substernal cp or orthopnea pulm - mild cough, ongoing TREVINO; no dyspnea at rest GI - nausea/emesis s/p NaCl tablet ingestion today Physical Exam Physical Exam: gen - NAD, very pleasant mouth - MMM neck - no JVD heart - RRR, s1 s2 lungs - decreased BS right base - maybe slightly improved from prior exam; CTA on left; focal rales/wheeze R base; no increased work of breathing abd - mildly distended, BS+, NT ext - no edema, pulses 2+ b/l psych - a/o x 3 Results & Data Results & Data ([facility]) Vital Signs (Past 12 Hours) Vital Signs Temp Pulse Resp BP Pulse Ox 03/14/22 19:23 37.2 C 79 20 128/71 93 03/14/22 17:03 36.8 C 93 H 19 139/76 92 03/14/22 11:34 36.5 C 78 19 132/74 90 PG Care Time/CCT Total # of Minutes Spent Total Time Spent with Patient: Total time spent is greater than 50% in coordination of care (as documented) at patient's floor/unit and/or counseling patient: Coding Level of Care Code 52103 Subseq Hosp Care Lvl 2 Diagnoses Pleural effusion J90 Adenocarcinoma of right lung, stage 4 C34.91 COPD with emphysema J43.9 Gout M10.9 Hyponatremia E87.1 Hyperlipidemia E78.5 DVT prophylaxis Z29.9 Malignant pleural effusion J91.0
[2022-03-15] MEDS: ALTEPLASE, RECOMBINANT 10 MG in SYRINGE 50 ML IPL SCH ×2 (05:15→16:53)
[2022-03-15] MEDS: HEPARIN SOD 5,000 UNIT/0.5 ML VIAL SQ SCH ×3 (06:06→21:18)
[2022-03-15] MEDS: DORNASE ALFA 5 ML in SYRINGE 25 ML IPL SCH ×2 (06:06→18:13)
[2022-03-15] MEDS: PIPERACILLIN/TAZOBACTAM 3.375 GM in DEXTROSE 5% 100 ML IV SCH ×3 (06:07→21:20)
[2022-03-15 08:08] LABS: Calcium 8.9 mg/dl (8.5-10.1); Creatinine Clr Calc Pharmacy 113.5 ml/min; Est GFR (African American) 109.8 ml/min; Est GFR (Non-African American) 94.8 ml/min; Potassium 4.3 mmol/L (3.5-5.1)
[2022-03-15 08:13] LABS: Hematocrit (blood only) 43.9 % (42-52); Hemoglobin 14.8 g/dL (14.0-18.0); Mean Corpuscular Hemoglobin 29.2 pg (25-34); Mean Corpuscular Hgb Conc 33.7 g/dL (32-36); Mean Corpuscular Volume 86.8 fL (80-100); Mean Platelet Volume 9.3 fL (7.4-10.4); Platelet Count 259 K/uL (130-400); RDW Coefficient of Variation 14.1 % (11.5-14.5); RDW Standard Deviation 44.7 fL (36.4-46.3); Red Blood Count 5.06 M/uL (4.7-6.1); White Blood Count 17.99 K/uL (4.8-10.8)
--- NOTE | 2022-03-15 08:42 | XRay Report ---
XR chest 1V portable CLINICAL HISTORY: Follow-up right-sided chest tube and right hilar mass. COMPARISON STUDY: 03/14/2022 TECHNIQUE: 1 view of the chest FINDINGS: Single frontal view of the chest demonstrates the cardiomediastinal silhouette to be within normal li mits. Right hilar mass is again seen. Right-sided pigtail catheter is again seen at the right lung ba se with no definite recurrent pleural effusion. There is no pneumothorax. There is decreased right ba silar atelectasis. Left hemithorax is now clear. Very minimal blunting of the left costophrenic angle is again seen. There is no evidence for vascular congestion. There is no acute osseous pathology. IMPRESSION: 1. No change in right-sided pigtail catheter with no recurrent pleural effusion or pneumothorax. 2. Decreased right basilar atelectasis. 3. Right hilar mass is again seen. 4. Minimal blunting of left costophrenic angle is also again noted. ACT 112: Negative or not required by law. Electronically signed by: Sourav Fuentes M.D. 03/15/2022 8:40 AM
[2022-03-15] MEDS: UMECLIDINIUM/VILANTEROL 62.5/25MCG 7 PUFFS/INHALER INH SCH (09:23)
[2022-03-15] MEDS: MULTIVITAMIN TAB PO SCH (09:23)
[2022-03-15] MEDS: SODIUM CHLORIDE 1 GM TABLET PO SCH (09:23)
[2022-03-15] MEDS: ACETAMINOPHEN 325 MG TAB PO PRN ×2 (09:27→18:00)
[2022-03-15] MEDS ORDERED: bisacodyL 10 MG SUPP PR STA (11:33)
--- NOTE | 2022-03-15 11:50 | XRay Report ---
ABDOMEN 2 VIEWS HISTORY: nausea, emesis; eval ileus, eval constipation COMPARISON: Chest 03/15/2022. Abdomen and pelvis CT 07/20/2021. FINDINGS: Right basilar pigtail catheter and trace right pleural effusion persist. Right perihilar ma ss is also again noted. Left basilar linear densities favor subsegmental atelectasis. No dilated loop s of bowel to suggest an obstruction. Moderate well-formed stool seen throughout the colon. No pneumo peritoneum. No pneumatosis. IMPRESSION: 1. No evidence for bowel obstruction. 2. Moderate well-formed stool within the colon. 3. Right basilar pleural catheter and right perihilar mass again noted. ACT 112: Negative or not required by law. Electronically signed by: Tyrone Keita M.D. 03/15/2022 11:49 AM
[2022-03-15] MEDS ORDERED: SOD PHOSPHATE/SOD BIPHOSPHATE ENEMA 132 ML BTL PR STA (13:42)
--- NOTE | 2022-03-15 16:17 | Pulmonology Progress Note ---
Date of Service March 15, 2022 Assessment & Plan (1) Malignant pleural effusion: Plan: Continue with the Mist2 protocol. Tomorrow morning should be the last dose of tPA dornase via the pigtail. If drainage decreases, we will likely discontinue the pigtail drain tomorrow. Thus far, pleural fluid cultures are negative to date. Patient has advanced emphysema on imaging and clinically has COPD. Continue with inhalers. Patient has outpatient follow-up with [facility] oncology for his metastatic adenocarcinoma. Will defer Pleurx catheter placement decision to his outpatient manager med surg in the future. Admission and Anticipated Discharge Date Admission Date: March 13, 2022 Subjective Patient seen and examined this afternoon. He notes that his shortness of breath improved, but is still present with exertion. Cough is improved as well. Denies any significant chest pain at the pigtail insertion site. He has had trouble with nausea and vomiting throughout the day. He received an enema and laxatives by the hospitalist. Review of Systems Review of Systems: All systems reviewed & are unremarkable except as noted in HPI & below Physical Exam Physical Exam: gen - pleasant, comfortable, sitting in chair, NAD eyes - lens implants b/l; PERRL HENT - mouth with MMM, no lesions neck - no JVD, no mass, no thyroid nodules heart - RRR, s1 s2, no murmur lungs - decreased BS right base, otherwise CTA b/l, no rales or wheeze or increased work of breathing. Right pigtail catheter clean, dry and intact abd - soft NT ND BS+; no HSM ext - no edema, pulses 2+ b/l skin - no rash neuro - strength 5/5 x 4 exts; DTRs 2+ b/l psych - a/o x 3 lymph - no cervical lymph nodes b/l Results & Data Results & Data [facility]) Vital Signs (Past 12 Hours) Vital Signs Temp Pulse Pulse Resp BP Pulse Ox 03/15/22 14:57 36.7 C 93 H 18 110/76 92 03/15/22 11:28 36.7 C 92 H 18 116/74 90 03/15/22 06:56 36.9 C 98 H 20 137/80 91 PG Care Time/CCT Total # of Minutes Spent Total Time Spent with Patient: Total time spent is greater than 50% in coordination of care (as documented) at patient's floor/unit and/or counseling patient: Coding Level of Care Code 08841 Subseq Hosp Care Lvl 2 Diagnoses Malignant pleural effusion J91.0
[2022-03-15] MEDS: SENNA 8.6 MG TAB PO SCH (18:00)
--- NOTE | 2022-03-15 20:57 | Hospitalist Progress Note ---
Date of Service March 15, 2022 Assessment & Plan (1) Malignant pleural effusion: Plan: Although cytologies are negative from the pleural fluid from earlier this month - as well as this admission - the reaccumulating fluid is still very suspicious for malignant pleural effusion given the large RLL lung cancer.. CXR continues to be stable. Continues with pigtail catheter placement on the right and is on day #2/3 of MIST-2 protocol. Defer management to pulmonary. Patient remains on IV zosyn in the event there is an infectious component to this right-sided effusion. pH of pleural fluid was VERY LOW at time of most recent thoracentesis (hospital day #1). Thus far cultures are negative, however. CXR in am. Pain meds prn. (2) Pleural effusion: Plan: Right-sided, presumed malignant, already reaccumulating within 2 weeks of previous thoracentesis. see #1 above. (3) Adenocarcinoma of right lung, stage 4: Plan: Recent diagnosis via liver biopsy performed at [facility]. Patient to initiate chemotherapy under the care of Dr Kris Aguayo, [facility]. (4) COPD with emphysema: Plan: Now with NC O2 requirement likely due to #1 as well as his COPD itself. Most recent Chest CT without PE. Bronchodilators prn. Cont NC O2. Cont usual home inhalers. (5) Gout: Plan: No flare at this time. Cont allopurinol for gout prophylaxis. (6) Hyponatremia: Plan: Urine osm VERY high, urine Na >100. 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 He is on SSRI therapy but the celexa is chronic for years; thus, likely not causing the SIADH. Unfortunately he cannot tolerate the NaCl tablets. Thus, will stop. Change diet to regular and I told him he can add extra salt to his diet. Fluid restrict 1500cc/day. BMP am. (7) Hyperlipidemia: Plan: LFTs are wnl. Cont lipitor daily. Hold aspirin due to bloody pleural fluid & need for additional intervention. (8) Constipation: Plan: severe on KUB x-ray today s/p fleets enema with some results then miralax BID + senna 2 tabs daily adjust for 1 soft BM at least QOD (9) DVT prophylaxis: Plan: heparin 5000 TID subcu Plan: updated pt's at bedside today needs PT, OT Admission and Anticipated Discharge Date Admission Date: March 13, 2022 Subjective patient this am felt poorly - no appetite, nausea, dyspepsia, no BM in several days gave fleets enema -- did have BM with such unable to take the NaCl tab - makes him feel sick still with TREVINO with ambulating to bathroom mild discomfort over R pigtail catheter site at bedside during the visit today Review of Systems Review of Systems: gen - no fevers or chills cv - no orthopnea pulm - cough, TREVINO; no wheezing GI - bloating, dyspepsia, nausea, emesis, constipation; no blood per rectum Physical Exam Physical Exam: gen - NAD, very pleasant, laying comfortably in bed mouth - MMM neck - no JVD heart - RRR, s1 s2 lungs - decreased BS right base with focal rales and course BS on right; CTA on left; no increased work of breathing; pigtail catheter site on right clean abd - ongoing distension, BS+, NT ext - no edema, pulses 2+ b/l psych - a/o x 3 Results & Data Results & Data ([facility]) Vital Signs (Past 12 Hours) Vital Signs Temp Pulse Pulse Resp BP Pulse Ox 03/15/22 14:57 36.7 C 93 H 18 110/76 92 03/15/22 11:28 36.7 C 92 H 18 116/74 90 Laboratory Results Laboratory Results - last 24 hr 03/15/22 03/15/22 06:52 06:52 WBC 17.99 H RBC 5.06 Hgb 14.8 Hct 43.9 MCV 86.8 MCH 29.2 MCHC 33.7 RDW Std Deviation 44.7 RDW Coeff of Reece 14.1 Plt Count 259 MPV 9.3 Sodium 131 L Potassium 4.3 Chloride 100 Carbon Dioxide 23 Anion Gap 8 BUN 20 Creatinine 0.74 Est Cr Clr Drug Dosing 113.5 Est GFR ( Amer) 109.8 Est GFR (Non-Af Amer) 94.8 BUN/Creatinine Ratio 27.0 H Glucose 114 H Calcium 8.9 Diagnostic Findings Pleural fluid cx negative todate for pathogens PG Care Time/CCT Total # of Minutes Spent Total Time Spent with Patient: Total time spent is greater than 50% in coordination of care (as documented) at patient's floor/unit and/or counseling patient: Coding Level of Care Code 23198 Subseq Hosp Care Lvl 2 Diagnoses Malignant pleural effusion J91.0 Pleural effusion J90 Adenocarcinoma of right lung, stage 4 C34.91 COPD with emphysema J43.9 Gout M10.9 Hyponatremia E87.1 Hyperlipidemia E78.5 DVT prophylaxis Z29.9 Constipation K59.00
[2022-03-15] MEDS: allopurinoL 300 MG TAB PO SCH (21:12)
[2022-03-15] MEDS: POLYETHYLENE (MIRALAX) 17 GM PACK PO SCH (21:12)
[2022-03-15] MEDS: CITALOPRAM 20 MG TAB PO SCH (21:12)
[2022-03-15] MEDS: ATORVASTATIN 20 MG TAB PO SCH (21:12)
[2022-03-16] MEDS: ALTEPLASE, RECOMBINANT 10 MG in SYRINGE 50 ML IPL SCH (05:08)
[2022-03-16] MEDS: PIPERACILLIN/TAZOBACTAM 3.375 GM in DEXTROSE 5% 100 ML IV SCH ×3 (05:58→21:59)
[2022-03-16] MEDS: HEPARIN SOD 5,000 UNIT/0.5 ML VIAL SQ SCH ×3 (06:04→21:59)
[2022-03-16] MEDS: DORNASE ALFA 5 ML in SYRINGE 25 ML IPL SCH (06:18)
[2022-03-16 07:12] LABS: Hematocrit (blood only) 41.4 % (42-52); Hemoglobin 13.7 g/dL (14.0-18.0); Mean Corpuscular Hemoglobin 28.7 pg (25-34); Mean Corpuscular Hgb Conc 33.1 g/dL (32-36); Mean Corpuscular Volume 86.8 fL (80-100); Mean Platelet Volume 8.9 fL (7.4-10.4); Platelet Count 258 K/uL (130-400); RDW Standard Deviation 44.6 fL (36.4-46.3); Red Blood Count 4.77 M/uL (4.7-6.1); White Blood Count 20.15 K/uL (4.8-10.8)
--- NOTE | 2022-03-16 07:23 | XRay Report ---
SINGLE VIEW CHEST CLINICAL HISTORY: Chest tube. FINDINGS: An AP, portable, upright chest radiograph is compared to study dated 03/15/2022 and correlat ed with chest CT dated 03/13/2022. The examination is degraded by portable technique and apical lordot ic positioning. A chest tube at the right lung base is unchanged in position. The cardiomediastinal s ilhouette is unremarkable noting atherosclerotic calcification of the thoracic aorta. Emphysema and c hronic interstitial thickening is similar to previous. A partially loculated pleural effusion at the right lung base is unchanged with right basilar consolidation. Scarring/atelectasis is seen at the le ft lung base. No pneumothorax is seen. There are healed right-sided rib fractures. Arthritic change i s seen in the shoulders. IMPRESSION: 1. A right-sided chest tube is unchanged in position. No pneumothorax is seen. 2. There is a small persistent loculated pleural effusion at the right lung base with associated righ t basilar consolidation. This obscures the patient's known right lung mass. 3. Emphysema. ACT 112: Negative or not required by law. Electronically signed by: Fernando Batista M.D. 03/16/2022 7:21 AM
[2022-03-16 07:35] LABS: BUN Creatinine Ratio 36.3 (10-20); Calcium 8.7 mg/dl (8.5-10.1); Est GFR (African American) 106.4 ml/min; Est GFR (Non-African American) 91.8 ml/min; Potassium 4.1 mmol/L (3.5-5.1)
[2022-03-16] MEDS: POLYETHYLENE (MIRALAX) 17 GM PACK PO SCH ×2 (08:50→20:12)
[2022-03-16] MEDS: SENNA 8.6 MG TAB PO SCH (08:50)
[2022-03-16] MEDS: UMECLIDINIUM/VILANTEROL 62.5/25MCG 7 PUFFS/INHALER INH SCH (08:50)
[2022-03-16] MEDS: MULTIVITAMIN TAB PO SCH (08:50)
--- NOTE | 2022-03-16 10:25 | Hospitalist Progress Note ---
Date of Service March 16, 2022 Assessment & Plan (1) Malignant pleural effusion: Plan: Attending: Dr. Nava Impression: 67-year-old male recently diagnosed with metastatic lung cancer to the liver. Patient was scheduled for thoracentesis with the pulmonary group on Friday. Successful thoracentesis but with only [address] of the chest was completed and showed significant loculation with significant pleural effusion. Pulmonary was consulted and Dr. Kong placed a 14 [place] pigtail catheter and placed it to suction at -20 and instituted mist 2 protocol. Patient is getting his third treatment of alteplase and Pulmozyme today. Possible removal of chest tube later today by pulmonary. Previous thoracentesis with Dr. Garrett in the outpatient side on 02/28/2022 showed no evidence of malignancy. Cytologies are also negative on fluid obtained from the pigtail catheter. Pleural pH was 7.09. In spite of that, fluid continues to remain negative for any bacterial infection. Empirically, patient was started on Zosyn every 8 hours. Pigtail catheter is in place. Dressing is dry and intact. There is no evidence of air leak on the Iveth Pleur-evac. Patient is receiving 3/3 of mist 2 protocol today Further management per pulmonary (2) Pleural effusion: Plan: Right-sided recurrent pleural effusion. Certainly reactive to the patient's known malignancy but no malignant cells found in pleural fluid Continue with mist 2 protocol Patient will need follow-up with Dr. Garrett in the office after discharge Patient is to start Keytruda with Dr. Kris Aguayo [facility] oncology. Hopefully this helps with the pleural effusion and we can avoid a Pleurx catheter. (3) Adenocarcinoma of right lung, stage 4: Plan: Recent diagnosis via liver biopsy performed at [facility]. Patient to initiate chemotherapy under the care of Dr Kris [facility]. (4) COPD with emphysema: Plan: No history of pulmonary function testing. Patient does have a [id number] smoking history Suspect that the patient has underlying COPD with emphysema based on imaging Started on outpatient supplemental oxygen by his primary care provider for hypoxia identified in the office At the time of patient's thoracentesis, Dr. Garrett started the patient on Stiolto Respimat. Continue umeclidinium/vilanterol while inpatient Patient will need outpatient follow-up for pulmonary function testing and management of the right pleural effusion on discharge. He should follow with Dr. Garrett in the office (5) Gout: Plan: No flare at this time. Cont allopurinol for gout prophylaxis. (6) Hyponatremia: Plan: Urine osm VERY high, urine Na >100. 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 He is on SSRI therapy but the celexa is chronic for years; thus, likely not causing the SIADH. Unfortunately he cannot tolerate the NaCl tablets. Thus, will stop. Change diet to regular and I told him he can add extra salt to his diet. Continue fluid restriction of 1500cc/day. This may not improve significantly until the patient begins treatment for his known malignancy BMP this am reveals a sodium of 130 for the fourth day in a row. No change in sensorium. (7) Hyperlipidemia: Plan: LFTs are wnl. Cont lipitor daily. Hold aspirin due to bloody pleural fluid & need for additional intervention. (8) Constipation: Plan: severe on KUB x-ray today s/p fleets enema with some results then miralax BID + senna 2 tabs daily adjust for 1 soft BM at least QOD No abdominal pain at this time If no bowel movement today, consider milk and molasses enema (9) DVT prophylaxis: Plan: heparin 5000 TID subcu Plan: updated pt's by telephone today when I was seeing the patient. needs PT, OT Admission and Anticipated Discharge Date Admission Date: March 13, 2022 Supervising Physician Co-Signing Physician Notes Attending Attestation - Chart reviewed in detail, care plan d/w PA Fernando Torres. I agree w/ the oconnor components of his documentation. Liborio Nava MD Subjective Attending: Dr. Nava Patient seen and examined in room 359. He is doing well. Pigtail catheter is in place. Dressing is in place and dry. Patient continues to drain bloody fluid. No airleak on the Iveth. All tubing is secure. Patient reports that he is feeling better as far as his breathing. He does state that with any kind of activity he does get short of breath. He went to the bathroom without oxygen and when he got back to the bed, he felt as though he needed oxygen. He has had no lightheadedness or dizziness. No respiratory distress. He states that he is doing quite well. Patient denies any pain at the chest tube insertion site. He has no chest pain or tightness. Review of Systems Review of Systems: A total of 10 systems was reviewed and is negative other than as listed in the HPI Physical Exam Physical Exam: GENERAL : No acute distress. Pleasant. Talkative. No evid ence of conversational dyspnea EYES: No icterus, gaze conjugate NOSE: No evidence of epistaxis MOUTH: No lesions or candidiasis NECK: Supple LUNGS: CTA B/L, no wheezes, rales or rhonchi HEART: Regular, rate controlled ABDOMEN: Soft, NT, ND, BS Present EXTREMITIES: No LE edema, pedal pulses intact NEURO: A&OX3 Results & Data Results & Data ([facility]) Vital Signs (Past 12 Hours) Vital Signs Temp Pulse Resp BP Pulse Ox 03/16/22 07:54 37.0 C 81 16 122/69 91 03/15/22 22:21 77 18 115/68 92 Critical Care Results & Data Vital Signs (Past 12 Hours) Vital Signs Temp Pulse Resp BP Pulse Ox 03/16/22 07:54 37.0 C 81 16 122/69 91 Lab & Micro Results (Past 24 Hours) No Data to Display 2 No Data to Display No Data to Display Microbiology 03/13/22 13:35 Acid Fast Bacilli Smear - Final Pleural Fluid Diagnostic Findings (Past 24 Hours) Abdomen X-Ray 03/15/22 10:50 ABDOMEN 2 VIEWS HISTORY: nausea, emesis; eval ileus, eval constipation COMPARISON: Chest 03/15/2022. Abdomen and pelvis CT 07/20/2021. FINDINGS: Right basilar pigtail catheter and trace right pleural effusion persist. Right perihilar mass is also again noted. Left basilar linear densities favor subsegmental atelectasis. No dilated loops of bowel to suggest an obstruction. Moderate well-formed stool seen throughout the colon. No pneumoperitoneum. No pneumatosis. IMPRESSION: 1. No evidence for bowel obstruction. 2. Moderate well-formed stool within the colon. 3. Right basilar pleural catheter and right perihilar mass again noted. ACT 112: Negative or not required by law. Electronically signed by: Tyrone Keita M.D. 03/15/2022 11:49 AM Chest X-Ray 03/16/22 08:00 SINGLE VIEW CHEST CLINICAL HISTORY: Chest tube. FINDINGS: An AP, portable, upright chest radiograph is compared to study dated 03/15/2022 and correlated with chest CT dated 03/13/2022. The examination is degraded by portable technique and apical lordotic positioning. A chest tube at the right lung base is unchanged in position. The cardiomediastinal silhouette is unremarkable noting atherosclerotic calcification of the thoracic aorta. Emphysema and chronic interstitial thickening is similar to previous. A partially loculated pleural effusion at the right lung base is unchanged with right basilar consolidation. Scarring/atelectasis is seen at the left lung base. No pneumothorax is seen. There are healed right-sided rib fractures. Arthritic change is seen in the shoulders. IMPRESSION: 1. A right-sided chest tube is unchanged in position. No pneumothorax is seen. 2. There is a small persistent loculated pleural effusion at the right lung base with associated right basilar consolidation. This obscures the patient's known right lung mass. 3. Emphysema. ACT 112: Negative or not required by law. Electronically signed by: Fernando Batista M.D. 03/16/2022 7:21 AM I & O Totals 24 Hours 03/15/22 03/16/22 03/17/22 06:59 06:59 06:59 Intake Total 395 / 395 1175 / 1175 115 / 115 Output Total 753 / 753 923 / 923 Balance -358 / -358 252 / 252 115 / 115 Cumulative 03/12/22 12:09 thru 03/16/22 09:58 Intake Total 1915 Output Total 2806 Balance -891 RT Ventilator Mngmt (Last Documented) Ventilator Ordered Settings Respiratory Rate 16 03/16/22 07:54 Ventilator - PT Measurements Respiratory Rate 16 PG Care Time/CCT Total # of Minutes Spent Total Time Spent with Patient: Total time spent is greater than 50% in coordination of care (as documented) at patient's floor/unit and/or counseling patient: Coding Level of Care Code 26302 Subseq Hosp Care Lvl 2 Diagnoses Malignant pleural effusion J91.0 Pleural effusion J90 Adenocarcinoma of right lung, stage 4 C34.91 COPD with emphysema J43.9 Gout M10.9 Hyponatremia E87.1 Hyperlipidemia E78.5 Constipation K59.00 DVT prophylaxis Z29.9
--- NOTE | 2022-03-16 11:57 | Pulmonology Progress Note ---
Date of Service March 16, 2022 Assessment & Plan (1) Malignant pleural effusion: Plan: He completed the MIST2 protocol today. He continues to have significant output from the right pigtail drain. We will transition the drain to waterseal from suction today. We will repeat an x-ray tomorrow. If drainage minimal overnight and throughout the day, we will remove the tube tomorrow. He may need a Pleurx cath in the near future. Thus far cultures have been negative probably pleural effusion. Recommend incentive spirometer and flutter valve for pulmonary clearance. Thank you for allowing us to participate in the care of this patient. Admission and Anticipated Discharge Date Admission Date: March 13, 2022 Subjective Patient seen and examined this morning. He is doing well. He still has constipation. He notes some chest tightness and mucus in his throat today. Notes. Review of Systems Review of Systems: All systems reviewed & are unremarkable except as noted in HPI & below Physical Exam Physical Exam: gen - pleasant, comfortable, sitting in chair, NAD eyes - lens implants b/l; PERRL HENT - mouth with MMM, no lesions neck - no JVD, no mass, no thyroid nodules heart - RRR, s1 s2, no murmur lungs - decreased BS right base, otherwise CTA b/l, no rales or wheeze or increased work of breathing. Right pigtail catheter clean, dry and intact abd - soft NT ND BS+; no HSM ext - no edema, pulses 2+ b/l skin - no rash neuro - strength 5/5 x 4 exts; DTRs 2+ b/l psych - a/o x 3 lymph - no cervical lymph nodes b/l Results & Data Results & Data ([facility]) Vital Signs (Past 12 Hours) Vital Signs Temp Pulse Resp BP Pulse Ox 03/16/22 07:54 37.0 C 81 16 122/69 91 PG Care Time/CCT Total # of Minutes Spent Total Time Spent with Patient: Total time spent is greater than 50% in coordination of care (as documented) at patient's floor/unit and/or counseling patient: Coding Level of Care Code 31614 Subseq Hosp Care Lvl 2 Diagnoses Malignant pleural effusion J91.0
[2022-03-16] MEDS: ACETAMINOPHEN 325 MG TAB PO PRN ×2 (14:44→20:10)
[2022-03-16] MEDS: ATORVASTATIN 20 MG TAB PO SCH (20:11)
[2022-03-16] MEDS: allopurinoL 300 MG TAB PO SCH (20:11)
[2022-03-16] MEDS: CITALOPRAM 20 MG TAB PO SCH (20:11)
[2022-03-17] MEDS: PIPERACILLIN/TAZOBACTAM 3.375 GM in DEXTROSE 5% 100 ML IV SCH ×2 (05:58→13:36)
[2022-03-17] MEDS: HEPARIN SOD 5,000 UNIT/0.5 ML VIAL SQ SCH ×2 (05:59→13:36)
[2022-03-17] MEDS: SENNA 8.6 MG TAB PO SCH (09:04)
[2022-03-17] MEDS: POLYETHYLENE (MIRALAX) 17 GM PACK PO SCH (09:04)
[2022-03-17] MEDS: MULTIVITAMIN TAB PO SCH (09:04)
[2022-03-17] MEDS: UMECLIDINIUM/VILANTEROL 62.5/25MCG 7 PUFFS/INHALER INH SCH (09:04)
--- NOTE | 2022-03-17 09:27 | XRay Report ---
SINGLE VIEW CHEST CLINICAL HISTORY: Chest tube. FINDINGS: An AP, portable, upright chest radiograph is compared to study dated 03/16/2022 and correlat ed with chest CT dated 03/13/2022. A chest tube at the right lung base is unchanged in position. The c ardiomediastinal silhouette is unremarkable noting atherosclerotic calcification of the thoracic aort a. Emphysema and chronic interstitial thickening is similar to previous. A partially loculated pleura l effusion at the right lung base is unchanged with right basilar consolidation. Scarring/atelectasis is seen at the left lung base. There is trace right apical pneumothorax. There are healed right-side d rib fractures. Arthritic change is seen in the shoulders. IMPRESSION: 1. A right-sided chest tube is unchanged in position. There is trace right apical pneumothorax. 2. There is a small persistent loculated pleural effusion at the right lung base with associated righ t basilar consolidation. This obscures the patient's known right lung mass. 3. Emphysema. ACT 112: Negative or not required by law. Electronically signed by: Fernando Batista M.D. 03/17/2022 9:26 AM
[2022-03-17] MEDS: ACETAMINOPHEN 325 MG TAB PO PRN (09:53)
--- NOTE | 2022-03-17 10:50 | Pulmonology Progress Note ---
Date of Service March 17, 2022 Assessment & Plan (1) Malignant pleural effusion: Plan: He completed the MIST2 protocol 03/16/2022. He has remained on waterseal overnight. Drainage has decreased. There is a small apical pneumothorax noted on the right. No airleak seen today. We will close the stopcock to the pigtail catheter today and repeat a chest x-ray at noon. If pneumothorax is stable, we will remove the pigtail catheter and the patient can be discharged home. Recommend avoiding any strenuous activity or lifting anything over 5 pounds for the next 2 weeks. Thus far cultures have been negative probably pleural effusion. May need Pleurx catheter as an outpatient in the future. Would like for the patient to undergo some chemotherapy treatment prior to insertion of the Pleurx catheter as the effusion may be responsive to treatment. Recommend incentive spirometer and flutter valve for pulmonary clearance. Thank you for allowing us to participate in the care of this patient. (2) Pneumothorax: Admission and Anticipated Discharge Date Admission Date: March 13, 2022 Subjective Notes some mild pain around the pigtail catheter insertion site today. Breathing is stable. Continues with constipation. Physical Exam Physical Exam: gen - pleasant, comfortable, sitting in chair, NAD eyes - lens implants b/l; PERRL HENT - mouth with MMM, no lesions neck - no JVD, no mass, no thyroid nodules heart - RRR, s1 s2, no murmur lungs - decreased BS right base, otherwise CTA b/l, no rales or wheeze or increased work of breathing. Right pigtail catheter clean, dry and intact abd - soft NT ND BS+; no HSM ext - no edema, pulses 2+ b/l skin - no rash neuro - strength 5/5 x 4 exts; DTRs 2+ b/l psych - a/o x 3 lymph - no cervical lymph nodes b/l Results & Data Results & Data ([facility]) Vital Signs (Past 12 Hours) Vital Signs Temp Pulse Resp BP Pulse Ox 03/17/22 07:03 36.5 C 79 14 125/66 92 03/17/22 00:42 36.6 C 76 18 118/69 92 PG Care Time/CCT Total # of Minutes Spent Total Time Spent with Patient: Total time spent is greater than 50% in coordination of care (as documented) at patient's floor/unit and/or counseling patient: Coding Level of Care Code 97283 Subseq Hosp Care Lvl 2 Diagnoses Malignant pleural effusion J91.0 Pneumothorax J93.9
--- NOTE | 2022-03-17 12:50 | Procedure Note ---
Procedure Note Date of Service March 17, 2022 Note The dressing of the pigtail catheter was taken down. The suture was removed. The pigtail catheter was removed upon the patient exhaling. Pigtail catheter was noted to be intact. Patient tolerated procedure well. A new 4 x 4 with tape was applied over the area. Coding CPT Codes Pulmonary/Thoracic - Pulmonary and Thoracic: 01826 Remove lung catheter ([id number]) [facility] Procedure Codes (Charges) Pulmonary/Thoracic Procedure 1: Pulmonary and Thoracic: 32556 Remove lung catheter
--- NOTE | 2022-03-17 14:11 | XRay Report ---
SINGLE VIEW CHEST CLINICAL HISTORY: Clamped chest tube. FINDINGS: An AP, portable, upright chest radiograph is compared to study performed earlier the same d ay 03/17/2022 and correlated with chest CT dated 03/13/2022. A chest tube at the right lung base is unc hanged in position. The cardiomediastinal silhouette is unremarkable noting atherosclerotic calcifica tion of the thoracic aorta. Emphysema and chronic interstitial thickening is similar to previous. A s mall pleural effusion at the right lung base is unchanged with right basilar consolidation. Scarring/ atelectasis is seen at the left lung base. There is trace right apical pneumothorax. There are healed right-sided rib fractures. Arthritic change is seen in the shoulders. IMPRESSION: 1. A right-sided chest tube is unchanged in position. Trace right apical pneumothorax is unchanged. 2. There is a small persistent right pleural effusion with associated right basilar consolidation. Th is obscures the patient's known right lung mass. 3. Emphysema. ACT 112: Negative or not required by law. Electronically signed by: Fernando Batista M.D. 03/17/2022 2:10 PM
--- NOTE | 2022-03-17 18:30 | Discharge Summary ---
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 The patient had had a right-sided thoracentesis on 02/28/[address] Yaw Garrett of [facility]. The procedure note indicates he had 950cc of blood fluid obtained at that time but the cytologies were negative. A subsequent liver biopsy was performed on 03/04/22 as an outpatient which confirmed a diagnosis of lung adenocarcinoma. He then had a PET/CT on 03/06/22 demonstrating a large RLL necrotic mass with evidence of metastatic disease. Following his 02/28 thoracentesis his dyspnea on exertion had improved but since that time the dyspnea has progressively gotten worse. This has been associated with pleuritic chest pain over the parasternal border on right. He states he can only walk a few feet before the shortness of breath sets in. In fact yesterday he was placed on supplemental [place] O2 by his PCP for O2 sats in the 70s by report. Patient reports that he has "simply not felt well" for 2-3 weeks. During this time period he has had fevers to 102 degrees, anorexia, fatigue, and dyspnea. Preparations were being made for him to start outpatient chemotherapy under the direction of Dr Kris Aguayo, [facility]/onc. During today's thoracentesis by Fernando OLIVO about 50cc of bloody fluid was obtained. Additional fluid was unable to be obtained, however. CTA chest immediately following the procedure showed that the right-sided effusion is now in loculations. No PE was seen. During my assessment the patient was resting comfortably and waiting for his bed on the med/surg unit. Admission Exam Per Admitting Provider Physical Exam: gen - pleasant, comfortable, sitting in chair, NAD eyes - lens implants b/l; PERRL HENT - mouth with MMM, no lesions neck - no JVD, no mass, no thyroid nodules heart - RRR, s1 s2, no murmur lungs - decreased BS right base, otherwise CTA b/l, no rales or wheeze or increased work of breathing abd - soft NT ND BS+; no HSM ext - no edema, pulses 2+ b/l skin - no rash neuro - strength 5/5 x 4 exts; DTRs 2+ b/l psych - a/o x 3 lymph - no cervical lymph nodes b/l Principal Diagnosis Complicated loculated right pleural effusion Discharge Exam GENERAL : No acute distress EYES: No icterus, gaze conjugate NOSE: No evidence of epistaxis MOUTH: No lesions or candidiasis NECK: Supple LUNGS: CTA B/L, no wheezes, rales or rhonchi CHEST: Right-sided pigtail catheter removed. No seepage or drainage from the wound at this time. Tegaderm with gauze applied HEART: Regular, rate controlled ABDOMEN: Soft, NT, ND, BS Present EXTREMITIES: No LE edema, pedal pulses intact NEURO: A&OX3 Discharge Data Allergies Allergy/AdvReac Type Severity Reaction Status Date / Time No Known Allergies Allergy Unknown ` Verified 03/13/22 07:37 Consultations Pulmonary consulted and placed pigtail catheter in minutes chest tube during the course of the patient stay Procedures Performed Operation Date: 03/13/22 08:00 Actual Procedures p Thoracentesis(Right) - JOI Kitchen Chest Tube Insertion Radiology(Right) - Ceasar Kong MD Ordered Studies 03/13/22 US venous doppler LE BI Routine 03/13/22 08:11 US point of care ultrasound Routine 03/13/22 09:16 US point of care ultrasound Routine 03/13/22 09:38 CT angio chest wo/w con Urgent 03/13/22 12:53 US point of care ultrasound Stat Hospital Course (1) Malignant pleural effusion: Attending: Dr. Nava Impression: 67-year-old male recently diagnosed with metastatic lung cancer to the liver. Patient was scheduled for thoracentesis with the pulmonary group on Friday. Successful thoracentesis but with only [address] of the chest was completed and showed significant loculation with significant pleural effusion. Pulmonary was consulted and Dr. Kong placed a 14 [place] pigtail catheter and placed it to suction at -20 and instituted mist 2 protocol. Patient completed his third treatment of alteplase and Pulmozyme. Imaging revealed a small pneumothorax. Most likely this is trapped lung due to the severe loculation and stranding seen on CT scan. Previous thoracentesis with Dr. Garrett in the outpatient side on 02/28/2022 showed no evidence of malignancy. Cytologies are also negative on fluid obtained from the pigtail catheter. Pleural pH from thoracentesis was 7.09. In spite of that, fluid continues to remain negative for any bacterial infection. Empirically, patient was started on Zosyn every 8 hours. Will discharge on Augmentin twice daily x5 days and stop Pigtail catheter removed by Dr. Kong on 03/17/2022. Okay to discharge home per pulmonary Patient will need to follow-up with Dr. Garrett in the office at the next available appointment. (2) Pleural effusion: Right-sided recurrent pleural effusion. Certainly reactive to the patient's known malignancy but no malignant cells found in pleural fluid mist 2 protocol completed Patient will need follow-up with Dr. Garrett in the office after discharge Patient is to start Keytruda with Dr. Kris Doan [facility]. Hopefully this helps with the pleural effusion and we can avoid a Pleurx catheter. (3) Hypoxia: Prior to admission, patient was seen by PCP who started him on supplemental oxygen for hypoxia identified in the office Ambulatory pulse ox was performed prior to discharge. Patient found to require 1 L/min via nasal cannula with rest and 3 L/min via nasal cannula with exertion Patient advised to maintain oxygen saturation between 88% and 92% until seen by Dr. Garrett in the outpatient office Patient will need pulmonary function testing as an outpatient (4) Pneumothorax: Imaging reveals a small pneumothorax. This most likely is trapped lung from the severe amount of stranding and loculation of the right pleural effusion Most likely, no intervention will be required. Patient advised to call 911 with severe shortness of breath, chest pain, profound hypoxia that is unexplained Patient should follow-up with Dr. Garrett in the outpatient clinic with outpatient imaging. (5) Adenocarcinoma of right lung, stage 4: Recent diagnosis via liver biopsy performed at [facility]. Patient to initiate chemotherapy under the care of Dr Kris Aguayo, [place]. (6) COPD with emphysema: No history of pulmonary function testing. Patient does have a [id number] smoking history Suspect that the patient has underlying COPD with emphysema based on imaging Started on outpatient supplemental oxygen by his primary care provider for hyp oxia identified in the office At the time of patient's thoracentesis, Dr. Garrett started the patient on Stiolto Respimat. Continue this on discharge Patient will need outpatient follow-up for pulmonary function testing and management of the right pleural effusion on discharge. He should follow with Dr. Garrett in the office (7) Gout: No flare at this time. Cont allopurinol for gout prophylaxis. (8) Hyponatremia: Urine osm VERY high, urine Na >100. 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 He is on SSRI therapy but the celexa is chronic for years; thus, likely not causing the SIADH. Unfortunately he cannot tolerate the NaCl tablets. Thus, will stop. Changed diet to regular and patient was told that he can add extra salt to his diet. Continue fluid restriction of 1500cc/day on discharge This may not improve significantly until the patient begins treatment for his known malignancy Outpatient follow-up with PCP (9) Hyperlipidemia: LFTs are wnl. Cont lipitor daily. Okay to resume aspirin 81 mg daily on discharge (10) Constipation: s/p fleets enema with some results then miralax BID + senna 2 tabs daily adjust for 1 soft BM at least QOD No abdominal pain at this time Patient continued a home regimen with [id number] stool softeners (11) DVT prophylaxis: heparin 5000 TID subcu while inpatient Patient being discharged home today. Should follow-up with Dr. Garrett in the office with the next available appointment. Patient instructed to call 911 with severe shortness of breath this acute, chest pain, unexplained breathlessne ss. Total Time Total Time Spent Total Time Spent (In Minutes): 50 minutes Discharge Plan Discharge Items Patient Disposition: Home - Self-Care Reason For Visit: COMPLICATED LOCULATED PLUERAL EFFUSION Discharge Diagnosis: Loculated pleural effusion Activity: Resume your previous activity Lifting: Gradually increase as tolerated Bathing Comment: No bathing or immersion of catheter site for 2 to 3 weeks. Exercise/Sports: Gradually increase as tolerated Driving/Machine Use: Resume 3 days after discharge Weightbearing: Full weightbearing Non-emergency contact: [employer] Call non-emergency contact if: you have any medication questions, your pain is concerning for you, you have a fever, your wound has increased redness and your wound has increased drainage Follow-up/Referrals: Aguilar Helton MD [Primary Care Provider] - Diet: Heart Healthy Fluids: 1500ml (6 cups) Addtl Attending Provider Instructions: You were admitted because you had a loculated pleural effusion on the right side. Although the pleural fluid was negative for cancer cells, this is most likely related to your cancer. If you begin to have increased shortness of breath, chest pain, increased drainage from your incisional site, or other concerns, please do not hesitate to call the pulmonary office at [phone]. You may shower and let water run over the waterproof dressing (Tegaderm) but do not bathe or immerse insertion site of catheter for 2 to 3 weeks. If the dressing comes off, you may cover with a Band-Aid and keep the area dry. If you develop fever, increased drainage, pain, shortness of breath please call the pulmonary office or report to the nearest emergency department. Pending Studies at Discharge: No Stand-Alone Forms: [facility] Medications and DC Order Prescriptions: New amoxicillin-pot clavulanate [Augmentin] 500-125 mg tablet 1 tab PO BID Qty: 10 RF: 0 (DME) Oxygen Home Liters Per Minute See Rx Instructions .ROUTE Qty: 1 RF: 0 Continued multivitamin Tablet 1 tab PO QAM RF: 0 atorvastatin 20 mg tablet 20 mg PO HS RF: 0 aspirin 81 mg Tablet,Delayed Release (Dr/Ec) 81 mg PO HS RF: 0 potassium 99 mg Tablet 99 mg PO QAM RF: 0 citalopram 20 mg tablet 20 mg PO HS RF: 0 allopurinol 300 mg tablet 300 mg PO HS RF: 0 Stiolto Respimat 2.5-2.5 mcg/actuation mist 2 inh inhalation DAILY Qty: 4 RF: 3 Discharge Orders: Discharge Order (Routine); Ordered 03/17/22 Ordered By: Fernando Bentley/Other Patient Handouts: Pleural Effusion Admission Data Admit Date/Time: 03/13/22 11:09 Attending Provider: Liborio Nava Admit Provider: Liborio Nava Primary Care Provider: Aguilar Helton Other Providers: Alfonso Plaza ; Ceasar Kong Other Interventions: Discharge Summary Assessment (RN) Last Done: 03/17/22 18:24 Supervising Physician Co-Signing Physician Notes Attending Attestation & Discharge Note: Pt seen/examined, chart reviewed, care plan d/w PA Fernando Torres. I agree w/ the oconnor components of his documentation. Pleasant 67yo male with recently diagnosed adenocarcinoma of the right lung with metastatic disease who presented for an elective right-sided pleural effusion. During thoracentesis very little fluid was able to be obtained. CT chest done shortly after showed multiple loculations. Fluid pH returned low. There was concern for empyema thus he was admitted to the hospital for chest tube placement and initiation of MIST-2 protocol. [facility] managed his chest tube and MIST-2 protocol. Surprisingly fluid culture was negative for bacterial pathogens, and cytologies were negative. [id number] there was considerable concern that the effusion was malignancy related Chest x-rays showed ongoing improvement in the the right-sided effusion & ultimately the chest tube was removed. He will d/c home on a course of PO antibiotics in the event there was a component of infection in the pleural space (despite the negative culture). Course complicated by hyponatremia likely 2nd to SIADH (discharge Na level = 131) as well as severe constipation. Discharge exam: gen - NAD neck - no JVD heart - RRR, s1 s2 lungs - mildly decreased BS right base, course BS right base, CTA on left abd - soft NT ND BS+ ext - no edema, pulses 2+ b/l Liborio Nava MD Coding Level of Care Code D/C DAY MANAGEMENT >30 MINS Diagnoses Malignant pleural effusion J91.0 Pleural effusion J90 Adenocarcinoma of right lung, stage 4 C34.91 COPD with emphysema J43.9 Gout M10.9 Hyponatremia E87.1 Hyperlipidemia E78.5 Constipation K59.00 DVT prophylaxis Z29.9 Hypoxia R09.02 Pneumothorax J93.9
== END 2022-03-17 19:07 | disposition home or self-care (01) | DRG 181 ==
LOC: CC 07:10 → SUATTDRO 11:09 → 3W 11:09